=== PATIENT | female | born 1960 | race Two or more races ===

== ENCOUNTER 2023-07-19 14:19 | Emergency (ER) | payer OTHER ==
[~2023-07-19] VITALS: Ht 162.6 cm; Wt 99.8 kg
[2023-07-19] MEDS ORDERED: ATORVASTATIN CA40 MG PO (14:35)
[2023-07-19] MEDS ORDERED: ALLOPURINOL300 MG PO (14:36)
[2023-07-19] MEDS ORDERED: LOSARTAN-HCTZ1 EACH PO (14:36)
[2023-07-19] MEDS ORDERED: FARXIGA10 MG PO (14:36)
[2023-07-19] MEDS ORDERED: AMLODIPINE BESYL5 MG PO (14:36)
[2023-07-19] MEDS ORDERED: INSULIN GL100 UNIT/3 SUBCUTANEO (14:36)
[2023-07-19] MEDS ORDERED: ST. JOSEPH ASPI81 M2 PO (14:37)
[2023-07-19] MEDS ORDERED: DEXAMETHASONE SODIUM PHOSPHATE 4 MG/ML VIAL IM STA (16:42)
[2023-07-19] MEDS ORDERED: 8HR ARTHRITIS650 M1 PO (20:09)
== END 2023-07-19 20:34 | disposition home or self-care (01) ==
LOC: ER 14:19
DX: M25.562 Pain in left knee (principal); I10 Essential (primary) hypertension; E11.9 Type 2 diabetes mellitus without complications; Z79.4 Long term (current) use of insulin; Z88.1 Allergy status to other antibiotic agents
CPT/HCPCS: 71111; 73560; 96372; 99283; J1100